=== PATIENT | female | born 1990 ===

== ENCOUNTER 2018-12-17 16:31 | Emergency (ER) | payer OTHER ==
[2018-12-17 16:57] VITALS: RESP 16; O2SAT 100
[2018-12-17] MEDS ORDERED: Naproxen 550 mg Tab PO STA (17:36)
[2018-12-17] MEDS ORDERED: Naproxen 550 mg Tab PO ONE (18:01)
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
--- NOTE | 2018-12-17 18:30 | RAD ---
Date of service: 12/17/2018 PROCEDURE: Cervical Spine Radiographs. HISTORY: Pain. COMPARISON: None available. TECHNIQUE: 3 views obtained. FINDINGS: BONES: Alignment maintained. No fracture. Dens Intact. DISC SPACES: Normal. SOFT TISSUES: Normal. No prevertebral soft tissue swelling. OTHER FINDINGS: None. IMPRESSION: Normal cervical spine radiographs
[2018-12-17 18:50] VITALS: BP 106/65; PULSE 60; TEMP 97.9
== END 2018-12-17 18:50 | disposition home or self-care (01) ==
LOC: C.ER 16:31
DX: S16.1XXA Strain of muscle, fascia and tendon at neck level, initial encounter (principal); V43.62XA Car passenger injured in collision with other type car in traffic accident, initial encounter; M54.5 Low back pain